=== PATIENT | female | born 1980 | race Caucasian/White ===

== ENCOUNTER 2020-07-13 12:26 | Emergency (ER) | payer OTHER ==
[~2020-07-13] VITALS: Ht 162.6 cm; Wt 66.0 kg
[2020-07-13] MEDS ORDERED: IBUPROFEN 200 MG TABLET. PO ONE (13:15)
[2020-07-13 13:23] LABS: BILIRUBIN,URINE NEGATIVE (NEG); CLARITY,URINE CLEAR; COLOR,URINE YELLOW; NITRITE,URINE NEGATIVE (NEG); PH,URINE 7.5 (<5.0-8.0); PROTEIN,URINE NEGATIVE (NEG-TRACE); UROBILINOGEN,URINE 0.2 mg/dL (0.2 mg/dL)
--- NOTE | 2020-07-13 13:44 | RAD ---
EXAM: PORTABLE CHEST 1V INDICATION: Reason: SHORTNESS OF BREATH, COUGH / Spl. Instructions: / History: . TECHNIQUE: Single view COMPARISON: None FINDINGS: The heart size is normal. The great vessels appear unremarkable. There is no hilar or mediastinal mass. The lungs are clear. There is no pleural effusion or pneumothorax. There are no significant osseous abnormalities. IMPRESSION: No active cardiopulmonary disease. Electronically signed by: Kisha Benedict MD (07/13/2020 1:41 PM) [id number]
[2020-07-13 13:46] LABS: BACTERIA,URINE MODERATE /HPF (0-FEW); RBC,URINE 0 /HPF (0-2); WBC,URINE 0 /HPF (0-4)
--- NOTE | 2020-07-13 13:52 | PHYS DOC ---
Past Medical History Past Medical History: Anxiety, Depression, Migraines Past Surgical History: Other Additional Past Surgical Histo: MYOMECTOMY Smoking Status: Never Smoker Alcohol Use: None General Adult EDM: Chief Complaint: COUGH HPI: HPI: Patient is a 40 year old female who presents with concerns that she may have the COVID-19 virus, patient stated last night she developed a dry cough. Patient states this morning she went to urgent care and was running a fever of 100.0 temporal skin temperature, patient stated urgent care directed her to come straight to the emergency department. Patient states she is also developed generalized body aches and has some low back pain. Patient states that she denies any exposure to the COVID-19 virus reporting that she works from home. Patient reports a history of migraines, and anxiety and depression is well controlled with her medications. Patient states she is a non-smoker. Patient denies any visual changes, nasal congestion, chest pain, abdominal pain, nausea, vomiting, diarrhea, or constipation. Patient states that she does feel short of breath when she is coughing, however does not feel short of breath when she is at rest. Patient denies any problems urinating, patient did not denies any pain in her joints, however reports some low back pain that she noticed this morning. Patient denies any vaginal discharge or STI concerns. Patient denies any urinary symptoms related to UTI. Patient denies any rashes of her skin, any headaches, focal weaknesses, or sensory changes. Patient denies any swelling of her glands, any current depressions or anxieties, patient denies any HI or SI. Review of Systems: Review of Systems: Constitutional: Complains of fever, denies chills, is concerned that she may have the COVID-19 virus. Eyes: Denies change in visual acuity. HENT: Denies nasal congestion or sore throat. Respiratory: Denies shortness of breath at rest, however complains of cough and shortness of breath when she does cough describing this is a dry cough. Cardiovascular: Denies chest pain or edema. GI: Denies abdominal pain, nausea, vomiting, or diarrhea. : Denies dysuria. Musculoskeletal: Denies back pain or joint pain. Integument: Denies rash. Neurologic: Denies headache, focal weakness or sensory changes. Lymphatic: Denies swollen glands. Psychiatric: Denies depression or anxiety. Heart Score: Risk Factors: Risk Factors: DM, Current or recent (<one month) smoker, HTN, HLP, family history of CAD, obesity. Risk Scores: Score 0 - 3: 2.5% MACE over next 6 weeks - Discharge Home Score 4 - 6: 20.3% MACE over next 6 weeks - Admit for Clinical Observation Score 7 - 10: 72.7% MACE over next 6 weeks - Early Invasive Strategies Family History: Family History: Patient denies any family history related to this ER visit today. Current Medications: Current Medications Medications (Trade) Dose Ordered Sig/Evelyne Start Time Stop Time Status Last Admin Dose Admin Ibuprofen (Motrin) 600 mg 1X ONCE 07/13/20 13:15 07/13/20 13:21 DC Allergies: Allergies: Allergies Coded Allergies Type Severity Reaction Last Updated Verified No Known Drug Allergies 07/13/20 No Physical Exam: PE: Constitutional: Well developed, well nourished, no acute distress, non-toxic appearance. HENT: Normocephalic, atraumatic, bilateral external ears normal, oropharynx moist, no oral exudates, nose normal. Eyes: PERRLA, EOMI, conjunctiva normal, no discharge. 4 mm. Neck: Normal range of motion, no tenderness, supple, no stridor. Cardiovascular:Heart rate regular rhythm, no murmur, heart sounds S1-S2 auscultation. Lungs & Thorax: Bilateral breath sounds clear to auscultation all lung pardo. Abdomen: Bowel sounds normal, soft, no tenderness, no masses, no pulsatile masses. Skin: Warm, dry, no erythema, no rash. Back: No tenderness, no CVA tenderness. Extremities: No tenderness, no cyanosis, no clubbing, ROM intact, no edema. Neurologic: Alert and oriented X 3, normal motor function, normal sensory function, no focal deficits noted. Psychologic: Affect normal, judgement normal, mood normal. Current Patient Data: Labs: Laboratory Tests Test 07/13/20 12:47 07/13/20 12:55 POC Urine HCG, Qualitative Hcg negative (Negative) Urine Collection Type Unknown Urine Color Yellow Urine Clarity Clear Urine pH 7.5 (<5.0-8.0) Urine Specific [place] 1.010 (1.000-1.030) Urine Protein Negative mg/dL (NEG-TRACE) Urine Glucose (UA) Negative mg/dL (NEG) Urine Ketones (Stick) Negative mg/dL (NEG) Urine Blood Trace (NEG) Urine Nitrite Negative (NEG) Urine Bilirubin Negative (NEG) Urine Urobilinogen Dipstick 0.2 mg/dL (0.2 mg/dL) Urine Leukocyte Esterase Negative (NEG) Urine RBC 0 /HPF (0-2) Urine WBC 0 /HPF (0-4) Urine Squamous Epithelial Cells Many /LPF Urine Bacteria Moderate /HPF (0-FEW) Urine Mucus Mod /LPF Vital Signs: Vital Signs Date Time Temp Pulse Resp B/P (MAP) Pulse Ox O2 Delivery O2 Flow Rate FiO2 07/13/20 12:40 98.9 86 16 143/66 (91) 97 Room Air 98.9 EKG: EKG: [] Radiology/Procedures: Radiology/Procedures: PATIENT: ALBERT FOLEY NACCOUNT: [id number] : 1980 LOCATION: ER AGE: 40 SEX: F EXAM STATUS: REG ER ORD. PHYSICIAN: PRESTON HAMMOND APRN REASON: SHORTNESS OF BREATH, COUGH PROCEDURE: PORTABLE CHEST 1V EXAM: PORTABLE CHEST 1V INDICATION: Reason: SHORTNESS OF BREATH, COUGH / Spl. Instructions: / History: . TECHNIQUE: Single view COMPARISON: None FINDINGS: The heart size is normal. The great vessels appear unremarkable. There is no hilar or mediastinal mass. The lungs are clear. There is no pleural effusion or pneumothorax. There are no significant osseous abnormalities. IMPRESSION: No active cardiopulmonary disease. Electronically signed by: Letitia Benedict MD (07/13/2020 1:41 PM) [id number] DICTATED and SIGNED BY: LETITIA BENEDICT MD DATE: 07/13/20 1341 Course & Med Decision Making: Course & Med Decision Making Pertinent Labs and Imaging studies reviewed. (See chart for details) 40-year-old female vital signs stable presents emergency department with complaints of concerns that she may have contacted the COVID-19 virus. Patient states she works at home and social isolated in cannot determine whether or not she was exposed or not. Patient's physical exam was normal, she was nontoxic- appearing, lung sounds are clear to auscultation. Patient was in no acute distress, however related to patient's concerns a COVID-19 test was performed along with a PA and lateral chest x-ray. Also a urinalysis was performed related to her complaints of low back pain when she coughed. Per radiologist interpretation chest x-ray was negative for acute findings. COVID test is now pending, urine however was questionable for UTI showed many bacteria although there were no leukocytes or nitrates noted. There was only slight blood in her urine, her last menstrual period was approximately 10 days ago normal duration and flow. Discussed findings with patient with diagnosis most likely bronchitis with possible UTI, will treat with amoxicillin p.o. Patient is to return to her primary care physician if low back pain continues or she has any new UTI type signs or symptoms. Patient understands that her COVID-19 test is pending and will be contacted if it is back positive. Patient gave verbal understanding of home care instructions, prescription instructions, return to ER concerns, patient had no further questions or concerns, patient will be given a work ex cuse for 3 days. Patient discharged home without incident. Steffi Disclaimer: Steffi Disclaimer: This electronic medical record was generated, in whole or in part, using a voice recognition dictation system. Departure Departure Impression: Primary Impression: Acute bronchitis Qualified Codes: J20.9 - Acute bronchitis, unspecified Additional Impressions: Person under investigation for COVID-19 Cystitis Disposition: 01 HOME, SELF-CARE Condition: GOOD Referrals: PADMINI ROLDAN (PCP) Patient Instructions: Acute Bronchitis, Urinary Tract Infection Additional Instructions: You have been tested for or diagnosed with COVID-19. It is an infection caused by a new type of coronavirus. COVID-19 will cause cold-like or mild flu symptoms in most. It can cause more severe symptoms like problems breathing in some. There is no treatment for COVID-19. The body will clear the infection over time. Self-care will help to ease discomfort. Steps to Take: Self-Care Rest as needed. Healthy habits may help you feel better. Steps include: Choose healthy foods including fruits and vegetables. Drink water throughout the day. Get plenty of sleep each night. If you smoke, try to quit. It may ease breathing. Avoid alcohol. Keep Others Healthy The virus can spread to others. Droplets are released every time you sneeze or cough. The droplets can get into the mouth, nose, or eyes of people near you and lead to infection. To lower the chances of spreading COVID-19 to others: Stay at home until your doctor has said it is safe to leave. If you tested positive this will mean staying isolated until both of the following are true: At least 7 days have passed since the start of illness. You are free of fever for at least 72 hours without the use of medicine. During this time: - Avoid public areas, events, or transportation. Do not return to work or school until your doctor has said it is safe to do so. - Call ahead if you need to go to a medical center. Let them know you may have COVID-19. It will help them guide you where to go. They may also ask you to wear a facemask when you come to the office. - If you call for emergency medical services, let them know you may have COVID- 19. While at home: - Try to avoid close contact with others. Stay about 6 feet away. - If possible, spend most of your time in a separate room from others. - Use a face mask if you will be in close contact with others such as sharing a room or vehicle. - Have someone wipe down common surfaces in the home. Use household senior account clerk every day on areas like doorknobs, counters, or sinks. - Cough or sneeze into a tissue. Throw the tissue away right after use. If a tissue is not available, cough or sneeze into your elbow. - Wash your hands often. Wash them after sneezing or coughing. Use soap and mo er and wash for at least 20 seconds. Alcohol based hand signs cleaner can be used if soap and water is not available. - Do not prepare food for others. Avoid sharing personal items like forks, spoons, or toothbrushes. - Avoid close contact with pets while you are sick. There is no evidence of the virus passing to pets. This is a safety step until more is known about this virus. Isolation can be frustrating. Social interaction can help. Keep in touch with friends and family through phone and tech options. You can still interact with others in your home, just keep a safe distance of about 6 feet. Follow-up: Your doctors office will check in with you to see if there are any changes in your health. You may be asked to keep track of symptoms to share with them. They will also let you know when you are clear to be in public again. Problems to Look Out For: Contact your doctor if your recovery is not going as you expect. Get emergency care if you have problems such as: - Trouble breathing - Nonstop chest pain or pressure - Changes in awareness, confusion, or problems waking - Lips or face have bluish color - Worsening of symptoms If you think you have an emergency, call for emergency medical services right away. As taken from [facility] Please take medications as prescribed, return to the emergency department for worsening symptoms, see your doctor soon. Scripts Amoxicillin/Potassium Clav (AMOX TR-K CLV 875-125 MG TAB) 1 Each Tablet 1 TAB PO BID, #20 TAB 0 Refills Prov: PRESTON HAMMOND APRN 07/13/20 PRESTON HAMMOND APRN Jul 13, 2020 13:52
[2020-07-13 15:44] VITALS: BP 121/70
[2020-07-13] MEDS ORDERED: AMOX1TAB11 PO (16:10)
--- NOTE | 2020-07-14 15:11 | NUR ---
IP: Attempted to call COVID results. No answer. Left a voicemail for a return call. Addendum: 07/14/20 at 1516 by ERIKA GRAY RN IP: Pt returned the call. I informed her of the negative COVID test. Pt verbalized understanding.
== END 2020-07-13 16:21 | disposition home or self-care (01) ==
LOC: ER 12:26
DX: J20.9 Acute bronchitis, unspecified (principal); N30.90 Cystitis, unspecified without hematuria; Z20.828 Contact with and (suspected) exposure to other viral communicable diseases; G43.909 Migraine, unspecified, not intractable, without status migrainosus; F32.9 Major depressive disorder, single episode, unspecified; F41.9 Anxiety disorder, unspecified
CPT/HCPCS: 71045; 81001; 81025; 87086; 99285; U0003